=== PATIENT | female | born 1965 | race Caucasian/White ===

== ENCOUNTER 2017-11-28 02:48 | Emergency (ER) | payer MEDICAID ==
[~2017-11-28] VITALS: Ht 165.1 cm; Wt 54.1 kg
[~2017-11-28 02:48] MED LIST: ALBU18HF2 INH; AZIT250T PO; EST1T PO; METH-360 PO; NORCO10T PO; OXYC-145 PO; PAM25C PO; TIAG4TAB PO; VAL5T PO
[2017-11-28 02:52] VITALS: BP 114/55
[2017-11-28] MEDS ORDERED: dexamethasone 4mg tablet PO ONE (03:05)
[2017-11-28] MEDS ORDERED: PRED20TA PO (03:06)
[2017-11-28] MEDS ORDERED: CLIN300C53 PO (03:06)
== END 2017-11-28 03:16 | disposition home or self-care (01) ==
LOC: ER 02:48
DX: J02.9 Acute pharyngitis, unspecified (principal); I10 Essential (primary) hypertension; F17.210 Nicotine dependence, cigarettes, uncomplicated; G89.29 Other chronic pain; Z98.890 Other specified postprocedural states; Z79.899 Other long term (current) drug therapy
CPT/HCPCS: 99283; 99406; J8540

== ENCOUNTER 2017-12-22 11:28 | Emergency (ER) | payer MEDICAID ==
[~2017-12-22] VITALS: Ht 165.1 cm; Wt 52.0 kg
[~2017-12-22 11:28] MED LIST changes: +PRED20TA PO
[2017-12-22 12:57] VITALS: BP 136/73
[2017-12-22 13:25] LABS: CLARITY,URINE CLEAR (Clear); COLOR,URINE YELLOW (Yellow); GLUCOSE, URINE NEGATIVE (Neg); KETONES,URINE NEGATIVE (Neg); LEUKOCYTE ESTERASE ,URINE NEGATIVE (Neg); NITRITES, URINE NEGATIVE (Neg); OCCULT BLOOD,URINE LARGE (Neg); PH,URINE 6.5 (4.8-8.0); PROTEIN,URINE NEGATIVE (Neg); UROBILINOGEN,URINE 0.2 E.U/dL (0.2-1.0)
[2017-12-22 13:27] LABS: UA COLLECTION TYPE CLN CATCH MIDSTREAM
[2017-12-22 13:32] LABS: RBC,URINE 20-50 /HPF (0-2); WBC,URINE 0-4 /HPF (0-4)
[2017-12-22 13:33] LABS: BACTERIA,URINE NONE SEEN /HPF (Neg); SQUAMOUS EPITHELIAL CELL,UR FEW /LPF (FEW)
[2017-12-22 13:37] LABS: URINE AMPHETAMINE SCREEN NEGATIVE (Neg); URINE BARBITUATE SCREEN NEGATIVE (Neg); URINE BENZODIAZEPINES SCREEN NEGATIVE (Neg); URINE CANNABINOID SCREEN NEGATIVE (Neg); URINE COCAINE SCREEN NEGATIVE (Neg); URINE METHADONE SCREEN NEGATIVE (Neg); URINE OPIATE SCREEN POSITIVE (Neg); URINE PHENCYCLIDINE SCREEN NEGATIVE (Neg)
== END 2017-12-22 13:00 | disposition home or self-care (01) ==
LOC: ER 11:29
DX: R53.83 Other fatigue (principal); G89.29 Other chronic pain; R31.9 Hematuria, unspecified; I10 Essential (primary) hypertension; Z98.890 Other specified postprocedural states; Z79.899 Other long term (current) drug therapy
CPT/HCPCS: 80305; 81001; 99284

== ENCOUNTER 2018-07-05 17:15 | Emergency (ER) | payer MEDICAID ==
[~2018-07-05] VITALS: Ht 165.1 cm; Wt 55.0 kg
[~2018-07-05 17:15] MED LIST changes: +IBUP-1985 PO; -PRED20TA PO
[2018-07-05 17:45] VITALS: BP 136/67
[2018-07-05] MEDS ORDERED: HYDROcodone/acetaminophen 10/325mg tab PO ONE (18:35)
[2018-07-05] MEDS ORDERED: ketorolac trometh inj. 60 MG/2 ML VIAL IM ONE (18:35)
== END 2018-07-05 19:04 | disposition home or self-care (01) ==
LOC: ER 17:20
DX: G89.29 Other chronic pain (principal); M54.9 Dorsalgia, unspecified; I10 Essential (primary) hypertension; Z98.890 Other specified postprocedural states; Z79.899 Other long term (current) drug therapy
CPT/HCPCS: 96372; 99283; J1885

== ENCOUNTER 2018-12-17 10:44 | Emergency (ER) | payer MEDICAID ==
[~2018-12-17] VITALS: Ht 165.1 cm; Wt 59.7 kg
[2018-12-17] MEDS ORDERED: normal saline 1000ml 1,000 ML IV ONE (13:05)
[2018-12-17 13:54] LABS: ALANINE AMINOTRANSFERASE 29 U/L (12-78); ALBUMIN 3.5 G/DL (3.4-5.0); ALKALINE PHOSPHATASE 114 IU/L (46-116); ANION GAP 5 (8-16); CHLORIDE 110 MMOL/L (99-107); CREATININE 0.73 MG/DL (0.40-0.90); POTASSIUM 4.5 MMOL/L (3.5-5.1); SODIUM 146 MMOL/L (135-145); eGFR 83 ML/MIN
[2018-12-17] MEDS ORDERED: iohexol 350MG/ML 100ml bottle IV ONE (13:57)
[2018-12-17 14:07] LABS: ASPARTATE AMINO TRANSFERASE 22 U/L (10-37); BASOPHILS % (AUTO) 0.4 % (0-1); EOSINOPHILS # (AUTO) 0.1 X10'3 (0-0.9); EOSINOPHILS % (AUTO) 0.9 % (0-6); HEMATOCRIT 40.5 % (35.0-45.0); HEMOGLOBIN 14.3 g/dl (12.0-16.0); LYMPHOCYTES # (AUTO) 2.6 X10'3 (1.1-4.8); LYMPHOCYTES % (AUTO) 33.6 % (21-51); MEAN CORPUSCULAR HEMOGLOBIN 31.2 PG (27.0-31.0); MEAN CORPUSCULAR VOLUME 88.1 FL (78-98); MEAN PLATELET VOLUME 8.3 FL (7.4-10.4); MONOCYTES # (AUTO) 0.4 X10'3 (0-0.9); MONOCYTES % (AUTO) 5.4 % (2-12); NEUTROPHILS # (AUTO) 4.6 X10'3 (1.8-7.7); NEUTROPHILS % (AUTO) 59.7 % (42-75); PLATELET COUNT 211 X10'3 (140-440); WHITE BLOOD COUNT 7.8 X10'3 (4.5-11.0)
[2018-12-17 14:09] LABS: BILIRUBIN,TOTAL 0.4 MG/DL (0.1-1.0); BLOOD UREA NITROGEN 5 MG/DL (7-18); BUN/CREATININE RATIO 6.8 (6.6-38.0); CALCIUM 8.7 MG/DL (8.5-10.1); GLUCOSE 103 MG/DL (70-104); MEAN CORPUSCULAR HGB CONC 35.4 g/dL (33.0-36.5); TOTAL PROTEIN 7.1 G/DL (6.4-8.2)
[2018-12-17 14:56] VITALS: BP 130/74
== END 2018-12-17 15:27 | disposition home or self-care (01) ==
LOC: ER 10:45
DX: H53.2 Diplopia (principal); R51 Headache; I10 Essential (primary) hypertension; G89.29 Other chronic pain; M06.9 Rheumatoid arthritis, unspecified; Z98.890 Other specified postprocedural states; Z79.899 Other long term (current) drug therapy
CPT/HCPCS: 36415; 70496; 80053; 84443; 85025; 85651; 86140; 99284; J7030; Q9967

== ENCOUNTER 2021-11-01 17:22 | Emergency (ER) | payer MEDICAID ==
[~2021-11-01] VITALS: Ht 165.1 cm; Wt 60.0 kg
[~2021-11-01 17:22] MED LIST changes: +DIAZ5TAB22 PO; -VAL5T PO
[2021-11-01 17:24] VITALS: BP 144/61
[2021-11-01] MEDS ORDERED: LIDOcaine 1% 30ml preserv. free vial IJ STA (19:09)
[2021-11-01] MEDS ORDERED: amox tr/potassium clavulanate 875/125mg TAB PO ONE (19:50)
[2021-11-01] MEDS ORDERED: AMOX-117 PO (20:00)
== END 2021-11-01 20:15 | disposition home or self-care (01) ==
LOC: ER 17:23
DX: K04.7 Periapical abscess without sinus (principal); I10 Essential (primary) hypertension; G89.29 Other chronic pain; M54.50 Low back pain, unspecified
CPT/HCPCS: 41800; 99284; A6449

== ENCOUNTER 2024-03-15 07:40 | Emergency (ER) | payer MEDICAID ==
[~2024-03-15] VITALS: Ht 165.1 cm; Wt 58.0 kg
[2024-03-15 07:41] VITALS: TEMP 98.6
[2024-03-15 08:41] VITALS: BP 132/86; PULSE 86; RESP 16; O2SAT 96
== END 2024-03-15 08:42 | disposition home or self-care (01) ==
LOC: ER 07:40
DX: S52.501A Unspecified fracture of the lower end of right radius, initial encounter for closed fracture (principal); S52.601A Unspecified fracture of lower end of right ulna, initial encounter for closed fracture; I10 Essential (primary) hypertension; G89.29 Other chronic pain; M06.9 Rheumatoid arthritis, unspecified; Z79.899 Other long term (current) drug therapy; Z79.1 Long term (current) use of non-steroidal anti-inflammatories (NSAID); W19.XXXA Unspecified fall, initial encounter; Y93.89 Activity, other specified; Y92.89 Other specified places as the place of occurrence of the external cause; Y99.8 Other external cause status
CPT/HCPCS: 29125; 73090; 99284

== ENCOUNTER 2024-03-17 15:35 | Emergency (ER) | payer MEDICAID ==
[~2024-03-17] VITALS: Ht 165.1 cm; Wt 59.0 kg
[2024-03-17 15:38] VITALS: BP 138/61; PULSE 67; RESP 16; O2SAT 96
[2024-03-17 18:39] VITALS: TEMP 98.1
== END 2024-03-17 18:40 | disposition home or self-care (01) ==
LOC: ER 15:36
DX: G56.31 Lesion of radial nerve, right upper limb (principal); I10 Essential (primary) hypertension; G89.29 Other chronic pain; M06.9 Rheumatoid arthritis, unspecified; Z79.899 Other long term (current) drug therapy
CPT/HCPCS: 99281

== ENCOUNTER 2024-06-15 19:16 | Emergency (ER) | payer MEDICAID ==
[~2024-06-15] VITALS: Ht 165.1 cm; Wt 59.0 kg
[2024-06-15 20:25] VITALS: BP 126/68; PULSE 68; RESP 16; TEMP 97.7; O2SAT 98
== END 2024-06-15 20:26 | disposition home or self-care (01) ==
LOC: ER 19:17
DX: S60.211A Contusion of right wrist, initial encounter (principal); I10 Essential (primary) hypertension; M06.9 Rheumatoid arthritis, unspecified; Z98.890 Other specified postprocedural states; X58.XXXA Exposure to other specified factors, initial encounter; Y93.89 Activity, other specified; Y92.89 Other specified places as the place of occurrence of the external cause; Y99.8 Other external cause status
CPT/HCPCS: 73110; 99283